=== PATIENT | male | born 1985 | race Caucasian/White ===

== ENCOUNTER → 2019-11-26 10:01 | Outpatient (CLI) | payer OTHER, SELFPAY ==
[2018-10-12 12:39] VITALS: BMI 25.0
[2019-11-29 03:07] LABS: QNTFERON TB Mitogen Value > 10.00 IU/mL (.); QNTFERON TB Nil Value 0.03 IU/mL (.); QNTFERON TB1+ Ag Value 0.04 IU/mL (.); QNTFERON TB2+ Ag Value 0.03 IU/mL (.)
[2019-11-29 13:16] LABS: QNTIFERON TB Positive Criteria Negative (Negative)
== END ==
LOC: MTLAB 10:02
PROVIDERS: Referring Provider Dermatology; Visit Provider Dermatology
DX: L40.0 Psoriasis vulgaris (principal); L23.7 Allergic contact dermatitis due to plants, except food; L01.01 Non-bullous impetigo; Z79.899 Other long term (current) drug therapy
CPT/HCPCS: 36415; 86480

== ENCOUNTER → 2019-12-06 10:00 | Outpatient (CLI) | payer SELFPAY ==
[2018-10-12 12:39] VITALS: BMI 25.0
--- NOTE | 2019-12-06 10:18 | HTC.HP_ITS ---
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, annual follow-up No factor use past year Treated with a course of oral steroids for psoriasis, significant improvement Health History: Past Medical History (Last Reviewed 10/12/18 @ 12:38 by Myah Pagan) Hemophilia (Acute) Past Surgical History (Last Updated 10/12/18 @ 12:38 by Myah Pagan) No history of previous surgery (Acute) Family History (Last Reviewed 10/12/18 @ 12:38 by Myah Pagan) Brother Hemophilia Social History Smoking Status Current every day smoker Allergies/Adverse Reactions: Allergy/AdvReac Type Severity Reaction Status Date / Time aspirin AdvReac Bleeding Verified 12/06/19 10:31 Risk Factors Social History Smoking Status Current every day smoker Tobacco Risk Data: Tobacco Risk Smoking Status Current every day smoker Type of tobacco: Smokeless tobacco usage: Items/Day: Year started: Years used: Counseled to quit/cut down: Reason for no counseling performed: Reason for no pharmacotherapy: Tobacco use comments: Passive smoke exposure: Substance Risk Drug use: Caffeine use [drinks/day]: Alcohol use: Type of alcohol: Drinks per day: Has patient felt the need to cut down: Has the patient been annoyed by complaints: Has the patient felt guilty about drinking: 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 Denies: Skin Changes, Wounds Neurological:: Denies: Headache, Dizziness, Visual changes, Tinnitus, Hearing loss Psychiatric: Denies: Anxiety, Depression, Homicidal Ideations, Suicidal Ideations - Physical Exam General: Alert, Oriented x3, No apparent distress HEENT: Atraumatic, PERRLA, EOMI, Normocephalic Oropharynx:: Dry mucosa Neck:: Supple, Trachea midline. Negative for: JVD, bilateral Cardiac:: Regular rate, Regular rhythm, Normal S1, Normal S2. Negative for: Murmur Lungs: Clear to auscultation, Excusion symmetrical. Negative for: Rhonchi, Wheezes Abdomen:: Bowel sounds x 4, Soft, Non-tender, Non-distended. Negative for: Hepatosplenomegaly Extremities:: Negative for: Cyanosis, Edema Neurological: Neuro grossly intact Skin:: Negative for: Lesions, Rash, Petechiae, Ecchymosis Psychiatric:: Appropriate affect, Euthymic Lymphatics:: Negative for: Cervical lymphadenopathy, Supraclavicular lymphadenopathy, Axillary lymphadenopathy Assessment and Plan Hemophilia annual screening visit. Reviewed: - On-demand therapy. - Appropriate oral hygiene and regular dental care is essential. - An appropriate exercise regimen encouraged for maintenance of a healthy weight, cardiovascular risk reduction, and positive effects on strength, flexibility, balance, joint stabilization, bone density, socialization, and psychological health. - Medicines that increase the risk of bleeding should be avoided namely anticoa gulants, aspirin, and other nonsteroidal anti-inflammatory drugs (NSAIDs). - Herbal remedies and [id number] supplements such as fish oil, may increase bleeding risk. - Pain can be treated with local measures (eg, cold packs, immobilization, splinting), and acetaminophen. - Cardiovascular disease prevention : focus on diet, exercise, smoking avoidance, and control of hypertension and hypercholesterolemia. - Planning for invasive procedures and elective surgery. Patient was also evaluated by the Hemophilia multidisciplinary team on site and Dr Courtney via video conferencing. Primary Care Provider: No Primary Care Phys Referring Provider:
[2019-12-06 10:33] VITALS: BP 127/62; PULSE 63; RESP 16; TEMP 36.6; O2SAT 97; BMI 24.7
== END ==
PROVIDERS: Visit Provider Internal Medicine Hematology & Oncology
DX: D67 Hereditary factor IX deficiency (principal)